=== PATIENT | male | born 1960 | race Two or more races ===

== ENCOUNTER 2020-07-12 08:57 | Day surgery (SDC) | payer OTHER, SELFPAY ==
[~2020-07-12] VITALS: Ht 185.4 cm; Wt 90.7 kg
[2020-07-12] MEDS ORDERED: fentaNYL citrate 0.05 MG/ML VIAL ONE (10:35)
[2020-07-12] MEDS ORDERED: MIDAZOLAM 2 MG/2 ML VIAL ONE (10:35)
[2020-07-12] MEDS ORDERED: LIDOCAINE VISCOUS 2% 20 ML UDC ONE (10:45)
[2020-07-12] MEDS ORDERED: MIDAZOLAM 2 MG/2 ML VIAL IVP ONE (11:05)
== END 2020-07-12 12:15 | disposition home or self-care (01) ==
LOC: MFCC 08:57 → MDS 08:57
PROVIDERS: ATTEND Internal Medicine Gastroenterology
DX: R10.13 Epigastric pain (principal); K20.9 Esophagitis, unspecified; K44.9 Diaphragmatic hernia without obstruction or gangrene; R14.0 Abdominal distension (gaseous); E11.9 Type 2 diabetes mellitus without complications; Z20.828 Contact with and (suspected) exposure to other viral communicable diseases
CPT/HCPCS: 36415; 43239; 86677; J2250; U0003; J3010